=== PATIENT | female | born 1950 | race Hispanic/Latino ===

== ENCOUNTER 2017-06-05 08:53 | Day surgery (SDC) | payer MEDICARE, BC ==
[2017-05-29 13:18] VITALS: BMI 26.2
[2017-06-05] MEDS ORDERED: Propofol 10 mg/ml Inj (20 ML) ONE ×2 (11:22→11:40)
[2017-06-05] MEDS ORDERED: Lidocaine 2% Inj (20ml) ONE (11:22)
[2017-06-05] MEDS ORDERED: Sodium Chloride 0.9% 1,000 ML IV SCH (12:00)
[2017-06-05 12:28] VITALS: RESP 16
[2017-06-05 13:18] VITALS: BP 119/66; PULSE 60; TEMP 98; O2SAT 99
== END 2017-06-05 13:25 | disposition home or self-care (01) ==
LOC: ENDO 08:53
PROVIDERS: ATTEND Internal Medicine Gastroenterology
DX: Z12.11 Encounter for screening for malignant neoplasm of colon (principal); K64.8 Other hemorrhoids; K63.89 Other specified diseases of intestine; Z86.010 Personal history of colon polyps; Z80.0 Family history of malignant neoplasm of digestive organs
CPT/HCPCS: 45378; J2704; J7040 ×2